=== PATIENT | female | born 1995 | race Caucasian/White ===

== ENCOUNTER → 2016-08-04 | Outpatient (CLI) | payer BC ==
--- NOTE | 2016-08-04 16:27 | DIAGNOSTIC IMAGING REPORT ---
LEFT HIP 2 VIEWS CLINICAL HISTORY: Left hip pain. FINDINGS: AP and frog-leg views of left hip are obtained. No prior studies are available for comparison at the time of dictation. The skeletal structures are well mineralized. No fracture is seen. The joint space of the left hip is well maintained. The left sacroiliac joint is normal as imaged. The overlying soft tissues are within normal limits. IMPRESSION: Unremarkable radiographic assessment of the left hip. Electronically signed by: Kevin Dwyer M.D. 08/04/2016 4:27 PM Dictated Date/Time: 08/04/2016 4:26 PM
--- NOTE | 2016-08-04 16:38 | DIAGNOSTIC IMAGING REPORT ---
SACRUM COCCYX MIN 2 VIEWS CLINICAL HISTORY: Sacral pain. History of fracture. COMPARISON STUDY: No previous studies for comparison. FINDINGS: The sacroiliac joints are intact without evidence for ankylosis. There is no acute fracture within the sacrum or the coccyx. No osseous lesion is identified. IMPRESSION: No acute fracture of the sacrum or coccyx. Electronically signed by: Carlton Cooper M.D. 08/04/2016 4:36 PM Dictated Date/Time: 08/04/2016 4:35 PM
== END | disposition home or self-care (01) ==
LOC: C.RAD1850 15:30
PROVIDERS: ATTEND Family Medicine Hospice and Palliative Medicine
DX: M53.3 Sacrococcygeal disorders, not elsewhere classified (principal)